=== PATIENT | male | born 1960 | race Caucasian/White ===

== ENCOUNTER → 2019-02-24 | Day surgery (SDC) | payer BC, OTHER ==
[~2019-02-24] VITALS: Ht 170.2 cm; Wt 94.1 kg
[~2019-02-24] MED LIST: ATROPINE 1 MG/10 ML SYRINGE ONE; DOPamine-D5W 1.6 MG/ML 250 ML ONE; EPINEPHrine 0.1 MG/ML SYG ONE; ETOMIDATE 20 MG INJ ONE; FENTAnyl 50 MCG/ML VIAL ONE; FUROSEMIDE 40 MG INJ ONE; HEPARIN 1000 UNITS/ML 10 ML INJ ONE; HEPARIN 1000 UNITS/NS (A-LINE) 2,000 ML ONE; IODIXANOL LOCM 100 ML BTL ONE; IOHEXOL 350MG/ML 50 ML BTL ONE; LIDOCAINE 1% (MDV) 20 ML INJ ONE; METOPROLOL 5 MG INJ IV ONE; MIDAZOLAM 1 MG/ML 2 ML INJ ONE; NA BICARBONATE 8.4% 50 ML SYG ONE; NITROGLYCERIN (IC) 100 MCG/ML INJ ONE; NORepinephrine 8MG/250 ML (PMX 250 ML ONE; PHENYLephrine 20MG IN 250 ML 250 ML ONE; PROPOFOL 100 ML ONE; ROCURONIUM 50 MG INJ ONE; SOD CHLORIDE 0.9% 1,000 ML ONE; VERAPAMIL 5 MG INJ ONE
[2019-02-24 00:52] VITALS: Ht 170.2 cm; Wt 94.1 kg
[2019-02-24 00:53] VITALS: BP 127/88; PULSE 118
--- NOTE | 2019-02-24 01:05 | ERD ---
ER Documentation Chief Complaint Chief Complaint BIB RA FROM [facility] FOR STEMI, DENIES ANY CP HPI 58-year-old male with a history of diabetes and smoking history presenting by ambulance transferred from [facility] for STEMI seen on EKG and active chest pain. The patient's case was discussed with the arch cushion press operator aayush castañeda, and transfer for STEMI was recommended. Patient initially presented to the ER with shortness of breath and cough. While he was getting a CTA of his chest done, he started to experience some squeezing, severe, pressure-like chest pain with associated diaphoresis and increasing shortness of breath while at rest. A repeat EKG was done and showed dynamic changes with ST elevations. Tie Tape Machine Operator there was consulted, and told to transfer the patient. Patient states that he was having severe pressure-like chest pain but currently feels much better after medications that were given prior to arrival. He was also started on heparin prior to transfer. ROS All systems reviewed and are negative except as per history of present illness. Allergies Allergies: Coded Allergies: No Known Allergy (Unverified , 04/17/15) PMhx/Soc History of Surgery: Yes (Orthopedic surgeries) Anesthesia Reaction: No Hx Neurological Disorder: No Hx Respiratory Disorders: No Hx Cardiac Disorders: No Hx Psychiatric Problems: No Hx Miscellaneous Medical Probl: Yes (Diabetes) Hx Alcohol Use: Yes Hx Substance Use: No Hx Tobacco Use: Yes Smoking Status: Current every day smoker FmHx Family History: coronary disease Physical Exam Vitals Vital Signs Date Temp Pulse Resp B/P (MAP) Pulse Ox O2 O2 Flow FiO2 Time Delivery Rate 02/24/19 Nasal 2 01:06 Cannula 02/24/19 97.4 118 18 127/88 100 Nasal 2.0 00:53 (101) Cannula 02/24/19 97.4 123 18 127/88 96 00:52 (101) 02/24/19 Nasal 00:51 Cannula Physical Exam Const: No acute distress Head: Atraumatic Eyes: Normal Conjunctiva ENT: Normal External Ears, Nose and Mouth. Neck: Full range of motion. No meningismus. Resp: tachypneic. Diminished breath sounds at the bases without wheezing, rales, or rhonchi Cardio: Tachycardic, regular rhythm, no murmurs. 2+ distal pulses Abd: Soft, non tender, non distended. Normal bowel sounds Skin: No petechiae or rashes Back: No midline or flank tenderness Ext: No cyanosis, or edema Neur: Awake and alert, no facial asymmetry, normal speech, moving all extremities spontaneously Psych: Normal Mood and Affect Result Diagram: 02/24/19 0114 02/24/19 0114 Results 24 hrs Laboratory Tests Test 02/24/19 01:06 Bedside Glucose 314 mg/dL Procedures/MDM EMERGENT LABS AND DIAGNOSTIC STUDIES: Lab Results above were reviewed and interpreted by me. CBC: Mild leukocytosis, likely stress reaction versus infection. No anemia CMP: Hyperglycemic without evidence of acidosis. Elevated BUN consistent with prerenal azotemia. No evidence of clinically significant electrolyte abnormality, acidosis, renal failure Troponin pending 12-lead EKG was interpreted by Richelle Huynh MD: Sinus tachycardia at 123 bpm Right axis deviation Evidence of old inferior infarct with possible old anterior infarct. Lateral and inferior T wave inversions with no significant ST elevations. Concerning for ischemia, no obvious STEMI Radiology Results as interpreted by Radiology below were reviewed by STd Huynh MD: Chest x-ray: Pending Initial Nursing notes reviewed. Previous Medical Records requested via the Electronic Health Record. EMERGENCY DEPARTMENT COURSE / MEDICAL DECISION MAKING: Patient arrived asymptomatic. However code STEMI was activated prior to arrival to the ER. Vitals were notable for tachycardia but he was otherwise hemodynamically stable.Dr Barrientos, maintenance supervisor on-call, came to bedside. Case was discussed with her and she took the patient immediately to the Gutter Installer. Chest x-ray was however not done prior to transfer to the Gutter Installer. Accepting Care Team: Current data and ongoing care discussed. Time: Time of admission Primary Provider: Dr. Rodriges Critical Care Time: 30 minutes Treatments/Evaluations: Close monitoring and treatment of unstable vital signs, cardiorespiratory, and neurologic status, while maintaining tight balance of fluid, respiratory, and cardiac interventions. This time includes discussing the case with the patient and the patients family. This time does not include all procedures stated elsewhere in this record. This time also includes reviewing old records, labs and radiological studies. This time includes examining and re- examining the patient. Additionally, this time also includes arranging care with admitting and consulting physicians. Departure Diagnosis: Primary Impression: NSTEMI (non-ST elevated myocardial infarction) Additional Impression: Hyperglycemia Condition: Serious EKROSA ELENA MONTOYA MD Feb 24, 2019 01:05
--- NOTE | 2019-02-24 01:22 | CONS ---
Assessment/Plan Assessment/Plan Hospital Course (Demo Recall) 58 year-old with acute STEMI of anterior wall. Impression: STEMI Diabetes, uncontrolled Tobacco abuse Recommendations: Cath with possible PCI, risks and benefits discussed and he agrees to proceed, all questions answered Needs dm control, tobacco cessation Echo, asa, dual antiplatelet therapy, statin, beta ashley Further plans post cath Consultation Date/Type/Reason Admit Date/Time Date of Consultation: Feb 24, 2019 Type of Consult Cardiology Reason for Consultation STEMI Requesting Provider: ROSA ELENA MENSAH MD Date/Time of Note DATE: 02/24/19 TIME: 01:15 Hx of Present Illness 58 yo with h/o DM on insulin and metformin presents with chest congestion since noon today, unable to bring up sufficient phlegm, and fatigue, presented to ED. Initial EKG without acute changes, pt taken to CT and had recurrence of CP and repeat ekg demonstrated ST elevations in anterior leads V2-V4. At present, pain free, but as I speak to him he is having runs of VT. Pt was at [facility] the day prior with upper respiratory symptoms and prescribed antibiotic and steroid. Smokes, but plans to quit. No prior cardiac hx. No alcohol, no drugs. Family history of premature cad, father of CAD around his age. Constitutional: no complaints Eyes: no complaints ENT: no complaints Respiratory: pleuritic pain, shortness of breath, sputum Cardiovascular: chest pain Gastrointestinal: no complaints Genitourinary: no complaints Musculoskeletal: no complaints Skin: no complaints Neurologic: no complaints Endocrine: no complaints Lymphatic: no complaints Psychological: no complaints Immunologic: no complaints Past Medical History Medical History: diabetes Medications Current Medications Metoprolol Tartrate (Lopressor) 5 mg ONCE ONCE IV ; Start 02/24/19 at 01:30; Stop 02/24/19 at 01:31 Allergies: Coded Allergies: No Known Allergy (Unverified , 04/17/15) Past Surgical History Past Surgical Hx: other (orthopedic knee) Family History Significant Family History: heart disease Social History Alcohol Use: sober Smoking Status: Current every day smoker Drug Use: none Exam/Review of Systems Vital Signs Vitals Vital Signs Date Temp Pulse Resp B/P (MAP) Pulse Ox O2 O2 Flow FiO2 Time Delivery Rate 02/24/19 Nasal 2 01:06 Cannula 02/24/19 97.4 118 18 127/88 100 00:53 (101) Exam Constitutional: alert, oriented, well developed Psych: nl mood/affect Head: normocephalic, atraumatic Eyes: nl conjunctiva, EOMI, nl lids, nl sclera ENMT: nl external ears & nose, nl nasal mucosa & septum; No nl lips & teeth (poor dentition) Neck: supple; No jvd, No bruits Respiratory: clear to auscultation, normal air movement Cardiovascular: regular rate and rhythm, nl pulses; No murmurs/extra sounds Gastrointestinal: soft, nl liver, spleen, non-tender Musculoskeletal: nl extremities to inspection Extremities: normal pulses; No edema Neurological: nl mental status, nl speech Skin: nl turgor; No rash or lesions Imaging Imaging EKG as described in HPI Medications Medications Current Medications Metoprolol Tartrate (Lopressor) 5 mg ONCE ONCE IV ; Start 02/24/19 at 01:30; Stop 02/24/19 at 01:31 SAMANTA MCGRAW Feb 24, 2019 01:21
[2019-02-24 02:30] VITALS: RESP 20
--- NOTE | 2019-02-24 03:59 | OPR ---
Date/Time of Note Date/Time of Note DATE: 02/24/19 TIME: 03:44 Operative Report Procedure Date: Feb 24, 2019 Preoperative Diagnosis STEMI anterolateral Postoperative Diagnosis same Operation/Procedure Performed Coronary angiography, left heart cath, balloon angioplasty to the LCX, moderate sedation, cpr Surgeon see signature line Metal Mover Farhat NICOLE Anesthesia Type: moderate sedation Estimated Blood Loss: 50 - 100 ml's Transfusion none Specimen none Grafts/Implants none Complications Indications 58 yo diabetic smoker with chest pressure and ST elevations in anterior leads and positive troponin Procedure Description Informed consent obtained. Pt brought emergently to the laboratory sampler, access obtained in the right radial artery, 6F sheath placed. Diagnostic images obtained with JR4 diagnostic and JF3.5 guide. 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 A [place] catheter passed into the LV, pressures measured, and pullback gradient assessed. It was felt appropriate to proceed with angioplasty of the LCX. The vessel was challenging to wire due to the severity of disease, but a TuneCore wire passed through the lesion and down the left PDA. A 2.5x15 balloon was inflated in the proximal portion of the lesion, but could not be advanced further. A 2.0 x 20 balloon was then inflated within the lesion. LISSA 3 flow was restored to the vessel. During this time, patient became very short of breath, furosemide IV g iven, and with no significant improvement he was intubated. Shortly thereafter, he lost pulse. The guide was pulled back, and wire and balloon removed from the artery. CPR performed for nearly an hour; the predominant rhythm was PEA, with two episodes of VF/VT for which he was shocked. See code sheet for details. Unfortunately, the patient did not survive. Spoke to patient's and 2 daughters. Findings: LM - short, normal LAD - severely diffusely diseased, 95% proximal long lesion LCX - diffusely diseased. 50% mid lesion, OM 1 with 80% mid lesion. After the takeoff of the OM1, there was a long 20 mm 99% occlusion of the LCX, prior to a left PDA. LISSA 2 flow present initially. RCA - nondominant with moderate diffuse disease LVEDP - 40 SAMANTA MCGRAW Feb 24, 2019 03:58
--- NOTE | 2019-02-24 04:02 | DES ---
Date/Time of Note Date/Time of Note DATE: 02/24/19 TIME: 04:00 Discharge/ Summary Admission/Discharge Info Admit Date/Time 02/24/2019 Date/Time 02/24/2019 03:37 Final Diagnosis STEMI anterolateral wall Preliminary Cause of STEMI Admit History 58 yo with chest discomfort and EKG changes consistent with STEMI, transferred from [facility] Course Patient brought emergently to agriculture laboratory technician. He was found to have severe 3V coronary disease, with the probable culprit being a dominant LCX. Balloon angioplasty performed, but the patient decompensated, required intubation, and then lost pulse. CPR and code conducted for nearly an hour. Pending Labs/Cultures Laboratory Tests Test 02/24/19 01:00 02/24/19 01:06 02/24/19 01:14 Prothrombin Time 14.2 Sec (11.9-14.9) Prothrombin Time 1.1 Ratio INR International 1.09 Normalized Ratio Activated Pending Partial Thromboplas t Time Bedside Glucose 314 mg/dL (70-220) White Blood Count 13.3 10^3/ul (4.8-10.8) Red Blood Count 4.59 10^6/ul (4.70-6.10 ) Hemoglobin 13.9 g/dl (14.0-18.0) Hematocrit 41.3 % (42.0-52.0) Mean Corpuscular 90.0 Volume fl (82.0-101.0) Mean Corpuscular 30.3 Hemoglobin pg (29.0-33.0) Mean Corpuscular 33.7 Hemoglobin Concent g/dl (32.0-37.0) Red Cell 12.3 % (11.5-14.5) Distribution Width Platelet Count 244 10^3/UL (140-415) Mean Platelet 10.3 fl (7.4-10.4) Volume Immature 0.600 Granulocytes % % (0.001-0.429) Neutrophils % 85.0 % (39.0-77.0) Lymphocytes % 7.5 % (15.0-51.0) Monocytes % 6.6 % (0.0-11.0) Eosinophils % 0.1 % (0.0-7.0) Basophils % 0.2 % (0.0-2.0) Nucleated Red Blood 0.0 Cells % /100WBC (0.0-0.0) Immature 0.080 Granulocytes # 10^3/ul (0.0-0.031 ) Neutrophils # 11.3 10^3/ul (1.6-7.5) Lymphocytes # 1.0 10^3/ul (0.8-2.9) Monocytes # 0.9 10^3/ul (0.3-0.9) Eosinophils # 0.0 10^3/ul (0.0-0.5) Basophils # 0.0 10^3/ul (0.0-0.1) Nucleated Red Blood 0.0 Cells # 10^3/ul (0.0-0.0) Sodium Level 135 mmol/L (135-144) Potassium Level 4.2 mmol/L (3.5-5.1) Chloride Level 100 mmol/L (97-110) Carbon Dioxide 25 mmol/L (21-31) Level Anion Gap 10 (5-13) Blood Urea 30 mg/dl (7-20) Nitrogen Creatinine 0.96 mg/dl (0.61-1.24) Est Glomerular > 60 mL/min (>60) Filtrat Rate mL/min Glucose Level 310 mg/dl (70-220) Calcium Level 8.7 mg/dl (8.4-10.2) Troponin I 11.300 ng/ml (0.000-0.120 ) SAMANTA MCGRAW Feb 24, 2019 04:02
== END | disposition expired ==
LOC: E/R 00:27 → CCL 01:13 → SDS 01:40
PROVIDERS: ATTEND Internal Medicine Interventional Cardiology
DX: I21.09 ST elevation (STEMI) myocardial infarction involving other coronary artery of anterior wall (principal); E11.65 Type 2 diabetes mellitus with hyperglycemia; Z79.4 Long term (current) use of insulin; Z79.84 Long term (current) use of oral hypoglycemic drugs
CPT/HCPCS: 31500; 80048; 82962; 84484; 85025; 85610; 85730; 92950; 93005; 93458; 94002; 96374; 99285; C1725; C1887; C9606; J0171; J0461; J1265; J1644; J1940; J2250; J2370; J3010; J7040; Q9967